=== PATIENT | male | born 1945 | race Caucasian/White ===

== ENCOUNTER 2018-08-16 12:04 | Emergency (ER) | payer MEDICARE, MEDICAID, OTHER ==
[~2018-08-16] VITALS: Ht 185.4 cm; Wt 95.0 kg
[~2018-08-16 12:04] MED LIST: BUDE10.2 INH; CETI10TA15 PO; DIGO250T77 PO; FURO40TA4 PO; GLIP5TAB13 PO; LISI10TA4 PO; METO100T7 PO; POTA10CA44 PO; RIVA15TA PO; SPIIN INH
[2018-08-16 12:35] VITALS: BP 126/71
[2018-08-16 13:24] LABS: BASOPHILS # (AUTO) 0.1 X10'3 (0-0.2); BASOPHILS % (AUTO) 0.7 % (0-1); EOSINOPHILS # (AUTO) 0.1 X10'3 (0-0.9); EOSINOPHILS % (AUTO) 1.1 % (0-6); HEMATOCRIT 47.9 % (42.0-52.0); HEMOGLOBIN 15.7 g/dl (14.0-17.9); LYMPHOCYTES # (AUTO) 1.4 X10'3 (1.1-4.8); MEAN CORPUSCULAR HEMOGLOBIN 32.7 PG (27.0-31.0); MEAN CORPUSCULAR HGB CONC 32.7 g/dL (33.0-36.5); MEAN CORPUSCULAR VOLUME 99.8 FL (78-98); MEAN PLATELET VOLUME 8.4 FL (7.4-10.4); MONOCYTES # (AUTO) 1.6 X10'3 (0-0.9); MONOCYTES % (AUTO) 13.3 % (2-12); NEUTROPHILS # (AUTO) 8.6 X10'3 (1.8-7.7); NEUTROPHILS % (AUTO) 72.9 % (42-75); PLATELET COUNT 232 X10'3 (140-440); RED CELL DISTRIBUTION WIDTH 14.3 % (11.5-14.5); WHITE BLOOD COUNT 11.8 X10'3 (4.5-11.0)
[2018-08-16] MEDS ORDERED: azithromycin 250mg tablet PO ONE (13:30)
[2018-08-16] MEDS ORDERED: predniSONE 20 mg tablet PO ONE (13:30)
[2018-08-16 13:37] LABS: ALANINE AMINOTRANSFERASE 23 U/L (12-78); ALBUMIN 3.4 G/DL (3.4-5.0); ALBUMIN/GLOBULIN RATIO 0.9 (1.1-1.5); ALKALINE PHOSPHATASE 52 IU/L (46-116); ANION GAP 9 (8-16); ASPARTATE AMINO TRANSFERASE 15 U/L (10-37); BILIRUBIN,TOTAL 0.2 MG/DL (0.1-1.0); BLOOD UREA NITROGEN 38 MG/DL (7-18); BUN/CREATININE RATIO 23.3 (5.4-32.0); CALCIUM 9.4 MG/DL (8.5-10.1); CHLORIDE 104 MMOL/L (99-107); CREATININE 1.63 MG/DL (0.60-1.10); GLUCOSE 134 MG/DL (70-104); POTASSIUM 4.2 MMOL/L (3.5-5.1); SODIUM 141 MMOL/L (135-145); TOTAL CARBON DIOXIDE 27.8 MMOL/L (24-32); eGFR 42 ML/MIN
[2018-08-16] MEDS ORDERED: AZIT250T2 PO (13:52)
[2018-08-16] MEDS ORDERED: PRED20TA PO (13:54)
[2018-08-17] MEDS ORDERED: METO100T7 PO (07:04)
[2018-08-17] MEDS ORDERED: DOCU100C41 PO (07:04)
[2018-08-17] MEDS ORDERED: PRED20TA PO (07:04)
[2018-08-17] MEDS ORDERED: GLIM4TAB79 PO (07:04)
[2018-08-17] MEDS ORDERED: CHOL2000 PO (07:04)
[2018-08-17] MEDS ORDERED: OMEP20CA10 PO (07:04)
[2018-08-17] MEDS ORDERED: AZIT-72 PO (07:04)
[2018-08-17] MEDS ORDERED: APIX5TAB3 PO (07:04)
[2018-08-17] MEDS ORDERED: FURO40TA4 PO (07:07)
[2018-08-17] MEDS ORDERED: POTA10CA44 PO (07:16)
[2018-08-17] MEDS ORDERED: LANTUS SQ (08:35)
== END 2018-08-16 14:24 | disposition home or self-care (01) ==
LOC: ER 12:05
DX: J44.1 Chronic obstructive pulmonary disease with (acute) exacerbation (principal); J40 Bronchitis, not specified as acute or chronic; I48.91 Unspecified atrial fibrillation; I10 Essential (primary) hypertension; E11.9 Type 2 diabetes mellitus without complications; Z79.899 Other long term (current) drug therapy
CPT/HCPCS: 36415; 71046; 80053; 83605; 85025; 87040; 99284; J7512

== ENCOUNTER 2018-08-17 06:23 | Inpatient (IN) | payer MEDICARE, MEDICAID, OTHER | END 2018-08-20 16:05 | LOC: ER 06:23 → ED HOLD 09:12 → PCU 3S 16:05 | DX: J96.21 Acute and chronic respiratory failure with hypoxia (principal); J44.1 Chronic obstructive pulmonary disease with (acute) exacerbation; N39.0 Urinary tract infection, site not specified; J20.9 Acute bronchitis, unspecified ==

== ENCOUNTER 2019-09-03 19:10 | Emergency (ER) | payer MEDICAID, MEDICARE, OTHER ==
[~2019-09-03] VITALS: Ht 185.4 cm; Wt 95.5 kg
[~2019-09-03 19:10] MED LIST changes: +APIX5TAB3 PO; +AZIT-72 PO; -CETI10TA15 PO; +CHOL2000 PO; +DIGO250T2 PO; -DIGO250T77 PO; +DOCU100C41 PO; +GLIM4TAB7 PO; -GLIP5TAB13 PO; +LANTUS SQ; -LISI10TA4 PO; +OMEP20CA15 PO; +PRED20TA PO; -RIVA15TA PO
[2019-09-03] MEDS ORDERED: dexamethasone sod phosphate 10mg/ml inj IV STA (20:02)
[2019-09-03] MEDS ORDERED: albuterol 2.5 MG/3 ML nebule CONTNEB PRN (20:05)
[2019-09-03] MEDS ORDERED: METO10TA3 PO (20:17)
[2019-09-03] MEDS ORDERED: DICY20TA18 PO (20:17)
[2019-09-03 20:44] LABS: ALANINE AMINOTRANSFERASE 17 U/L (12-78); ALBUMIN 3.7 G/DL (3.4-5.0); ALBUMIN/GLOBULIN RATIO 1.2 (1.1-1.5); ALKALINE PHOSPHATASE 64 IU/L (46-116); ANION GAP 7 (8-16); ASPARTATE AMINO TRANSFERASE 20 U/L (10-37); BILIRUBIN,TOTAL 0.6 MG/DL (0.1-1.0); BLOOD UREA NITROGEN 21 MG/DL (7-18); BUN/CREATININE RATIO 14.5 (5.4-32.0); CALCIUM 9.5 MG/DL (8.5-10.1); CHLORIDE 105 MMOL/L (99-107); CREATININE 1.45 MG/DL (0.60-1.10); GLUCOSE 158 MG/DL (70-104); POTASSIUM 3.6 MMOL/L (3.5-5.1); SODIUM 141 MMOL/L (135-145); TOTAL CARBON DIOXIDE 28.8 MMOL/L (24-32); TOTAL PROTEIN 6.9 G/DL (6.4-8.2); eGFR 48 ML/MIN
[2019-09-03 20:45] LABS: BASOPHILS # (AUTO) 0.1 X10'3 (0-0.2); EOSINOPHILS # (AUTO) 0.4 X10'3 (0-0.9); EOSINOPHILS % (AUTO) 3.2 % (0-6); HEMATOCRIT 41.7 % (42.0-52.0); LYMPHOCYTES # (AUTO) 2.4 X10'3 (1.1-4.8); MEAN CORPUSCULAR HEMOGLOBIN 31.9 PG (27.0-31.0); MEAN CORPUSCULAR HGB CONC 33.5 g/dL (33.0-36.5); MEAN CORPUSCULAR VOLUME 95.2 FL (78-98); MEAN PLATELET VOLUME 8.9 FL (7.4-10.4); MONOCYTES # (AUTO) 1.4 X10'3 (0-0.9); MONOCYTES % (AUTO) 12.2 % (2-12); NEUTROPHILS % (AUTO) 62.6 % (42-75); PLATELET COUNT 282 X10'3 (140-440); RED BLOOD COUNT 4.38 X10'6 (4.70-6.10); RED CELL DISTRIBUTION WIDTH 14.9 % (11.5-14.5); WHITE BLOOD COUNT 11.2 X10'3 (4.5-11.0)
[2019-09-03] MEDS ORDERED: ALBU8HFA PO (20:59)
[2019-09-03] MEDS ORDERED: DOXY100C43 PO (20:59)
[2019-09-03] MEDS ORDERED: PRED20TA PO (20:59)
[2019-09-03 21:53] VITALS: BP 155/86
== END 2019-09-03 21:54 | disposition home or self-care (01) ==
LOC: ER 19:10
DX: J44.1 Chronic obstructive pulmonary disease with (acute) exacerbation (principal); I12.9 Hypertensive chronic kidney disease with stage 1 through stage 4 chronic kidney disease, or unspecified chronic kidney disease; E11.22 Type 2 diabetes mellitus with diabetic chronic kidney disease; I48.91 Unspecified atrial fibrillation; Z60.2 Problems related to living alone; Z79.2 Long term (current) use of antibiotics; Z79.4 Long term (current) use of insulin; Z79.899 Other long term (current) drug therapy
CPT/HCPCS: 36415; 71045; 80053; 84484; 85025; 93005; 94644; 96374; 99285; J1100; 94640

== ENCOUNTER 2019-10-05 19:13 | Emergency (ER) | payer OTHER ==
[~2019-10-05] VITALS: Ht 185.4 cm; Wt 88.6 kg
[~2019-10-05 19:13] MED LIST changes: -AZIT-72 PO; -CHOL2000 PO; +DICY20TA18 PO; +METO10TA3 PO; -PRED20TA PO
[2019-10-05] MEDS ORDERED: ipratropium/albuterol 3ml nebule NEB ONE (19:40)
[2019-10-05] MEDS ORDERED: methylPREDNISolone sod succ 125mg/2ml vial IV ONE (19:45)
[2019-10-05 20:06] LABS: ALANINE AMINOTRANSFERASE 21 U/L (12-78); ALBUMIN 3.6 G/DL (3.4-5.0); ALBUMIN/GLOBULIN RATIO 1.2 (1.1-1.5); ALKALINE PHOSPHATASE 51 IU/L (46-116); ANION GAP 9 (8-16); ASPARTATE AMINO TRANSFERASE 20 U/L (10-37); BILIRUBIN,TOTAL 0.4 MG/DL (0.1-1.0); BLOOD UREA NITROGEN 25 MG/DL (7-18); BUN/CREATININE RATIO 17.7 (5.4-32.0); CALCIUM 9.5 MG/DL (8.5-10.1); CHLORIDE 105 MMOL/L (99-107); CREATININE 1.41 MG/DL (0.60-1.10); GLUCOSE 107 MG/DL (70-104); POTASSIUM 3.6 MMOL/L (3.5-5.1); SODIUM 140 MMOL/L (135-145); TOTAL CARBON DIOXIDE 26.5 MMOL/L (24-32); TOTAL PROTEIN 6.5 G/DL (6.4-8.2); eGFR 49 ML/MIN
[2019-10-05 20:09] LABS: BASOPHILS # (AUTO) 0.1 X10'3 (0-0.2); EOSINOPHILS # (AUTO) 0.1 X10'3 (0-0.9); EOSINOPHILS % (AUTO) 0.9 % (0-6); HEMATOCRIT 41.9 % (42.0-52.0); HEMOGLOBIN 13.8 g/dl (14.0-17.9); MEAN CORPUSCULAR HEMOGLOBIN 32.2 PG (27.0-31.0); MEAN CORPUSCULAR HGB CONC 32.8 g/dL (33.0-36.5); MEAN PLATELET VOLUME 8.2 FL (7.4-10.4); MONOCYTES # (AUTO) 1.1 X10'3 (0-0.9); MONOCYTES % (AUTO) 10.9 % (2-12); NEUTROPHILS # (AUTO) 5.7 X10'3 (1.8-7.7); NEUTROPHILS % (AUTO) 57.2 % (42-75); PLATELET COUNT 306 X10'3 (140-440); RED BLOOD COUNT 4.28 X10'6 (4.70-6.10); RED CELL DISTRIBUTION WIDTH 15.6 % (11.5-14.5)
[2019-10-05 20:20] LABS: TROPONIN I < 0.04 NG/ML (0.0-0.05)
--- NOTE | 2019-10-05 20:20 | NUR ---
Pt sleeping comfortably
[2019-10-05] MEDS ORDERED: furosemide 10 MG/1 ML 10ml inj IV ONE (20:40)
[2019-10-05 20:59] VITALS: BP 176/108
== END 2019-10-05 21:01 | disposition home or self-care (01) ==
LOC: ER 19:13
DX: J44.1 Chronic obstructive pulmonary disease with (acute) exacerbation (principal); I48.91 Unspecified atrial fibrillation; I10 Essential (primary) hypertension; E11.9 Type 2 diabetes mellitus without complications; Z60.2 Problems related to living alone; Z79.01 Long term (current) use of anticoagulants; Z79.4 Long term (current) use of insulin; Z79.899 Other long term (current) drug therapy
CPT/HCPCS: 36415; 71045; 80053; 83880; 84484; 85025; 93005; 94640; 96374; 96375; 99285; J1940; J2930; 94760